=== PATIENT | male | born 1995 | race Caucasian/White ===

== ENCOUNTER 2017-04-19 08:01 | Emergency (ER) | payer SELFPAY ==
[~2017-04-19] VITALS: Ht 177.8 cm; Wt 99.8 kg
[~2017-04-19 08:01] MED LIST: FLEXERIL10 MG PO; IBUPROFEN800 MG PO; PREDNISONE PO; VOLTAREN75 MG PO; ZOVIRAX PO
== END 2017-04-19 08:37 | disposition home or self-care (01) ==
LOC: CED 08:01
DX: R19.7 Diarrhea, unspecified (principal); F17.200 Nicotine dependence, unspecified, uncomplicated
CPT/HCPCS: 99283

== ENCOUNTER 2017-04-28 07:46 | Emergency (ER) | payer SELFPAY ==
[~2017-04-28] VITALS: Ht 177.8 cm; Wt 99.8 kg
== END 2017-04-28 08:29 | disposition home or self-care (01) ==
LOC: CED 07:46
DX: B86 Scabies (principal); F17.210 Nicotine dependence, cigarettes, uncomplicated
CPT/HCPCS: 99282